=== PATIENT | female | born 1965 | race African-American/Black ===

== ENCOUNTER → 2017-05-07 | Outpatient (CLI) | payer BC ==
[~2017-05-07] MED LIST: LOMOTIL TAB 01 UDTAB PO; NO HOME MEDICATIONS; PHENERGAN 25 TA25 MG PO
== END ==
LOC: MC.RAD 10:00
DX: Z12.31 Encounter for screening mammogram for malignant neoplasm of breast (principal)

== ENCOUNTER 2024-03-07 14:29 | Emergency (ER) | payer BC ==
[~2024-03-07] VITALS: Ht 170.2 cm; Wt 84.1 kg
[2024-03-07 14:43] VITALS: TEMP 98.5
[2024-03-07 15:43] LABS: BASO % 0.5 % (0.0-2.0); EOS # 0.1 K/mm3 (0.0-0.7); EOS % 3.2 % (0.0-4.0); GRAN # 2.1 K/mm3 (1.4-6.5); GRAN % 52.1 % (42.2-75.2); HEMATOCRIT 41.5 % (37.0-47.0); HEMOGLOBIN 12.9 g/dl (12.5-16.0); LYMPH # 1.4 K/mm3 (1.2-3.4); LYMPH % 33.7 % (20.0-51.0); MEAN CELL VOLUME 86 fl (80.0-100.0); MEAN CORPUSCULAR HEMOGLOBIN 27 pg (27-31); MEAN CORPUSCULAR HGB CONC 31 g/dl (33.0-37.0); MEAN PLATELET VOLUME 10.2 fl (7.4-10.4); MONO # 0.4 K/mm3 (0.1-0.6); MONO % 10.3 % (1.7-9.3); PLATELET COUNT 233 K/mm3 (130-400); RED BLOOD COUNT 4.82 M/mm3 (4.10-5.30); REDCELL DISTRIBUTION WIDTH-CV 12.2 % (11.5-14.5)
[2024-03-07 16:03] LABS: ALBUMIN 3.8 g/dL (3.4-4.8); BILIRUBIN,TOTAL 1.6 mg/dL (0.2-1.2); CREATININE, serum 0.9 mg/dL (0.57-1.11); POTASSIUM 3.7 mEq/L (3.5-4.5); TOTAL PROTEIN 7.7 g/dl (6.2-8.1)
[2024-03-07 16:08] LABS: TROPONIN-I 0.014 ng/mL (0.00-0.033)
[2024-03-07] MEDS ORDERED: fentaNYL 50 MCG/ML 2 ML VIAL IV ONE (16:45)
[2024-03-07] MEDS ORDERED: Ondansetron 4 MG/2 ML VIAL IV ONE (16:45)
[2024-03-07 17:15] LABS: URINE APPEARANCE CLEAR (CLEAR/HAZY); URINE BLOOD NEGATIVE (NEGATIVE); URINE COLOR YELLOW (YELLOW); URINE GLUCOSE 2+ (NEGATIVE); URINE KETONE TRACE (NEGATIVE); URINE NITRATE NEGATIVE (NEGATIVE); URINE PROTEIN(semi-quant) NEGATIVE (NEGATIVE)
[2024-03-07 17:19] LABS: COLLECTION METHOD CLEAN CATCH
[2024-03-07] MEDS ORDERED: NORCO 325 MG-51 TAB PO (17:44)
[2024-03-07] MEDS ORDERED: PHENERGAN 25 TA25 MG PO (17:44)
[2024-03-07] MEDS ORDERED: PEPCID 20MG TAB20 MG PO (17:44)
[2024-03-07] MEDS ORDERED: PRINIVIL20 MG PO (17:50)
[2024-03-07 18:20] VITALS: BP 186/104; PULSE 97
== END 2024-03-07 18:20 | disposition home or self-care (01) ==
LOC: COL.ER 14:29
PROVIDERS: Family Medicine
DX: R10.13 Epigastric pain (principal); R11.0 Nausea
CPT/HCPCS: J2405; J3010